=== PATIENT | female | born 1985 | race Hispanic/Latino ===

== ENCOUNTER → 2019-07-01 | Outpatient (CLI) | payer OTHER ==
--- NOTE | 2019-07-01 14:08 | Diagnostic Imaging Report ---
Exam: Pelvic ultrasound. History: Dysfunctional uterine bleeding, menorrhagia, anemia Comparison: None Findings: Transabdominal and endovaginal sonographic evaluation of the pelvis. The uterus is anteverted in position, measuring 8.8 x 5.4 x 8.9cm. No uterine mass. Endometrial stripe thickness is 17 millimeters. The right ovary measures 2.8 x 1.7 x 1.9 cm and appears unremarkable. The left ovary measures 3.0 x 3.0 x 3.1 cm and contains a 2.8 cm cystic lesion, likely physiologic in this premenopausal woman. No free fluid in the pelvis. Impression: 17 mm endometrial stripe is at the upper limits of normal for the secretory phase in this premenopausal patient. Signed by: Rubia Bustillos MD on 07/01/2019 2:04 PM
== END ==
LOC: US 12:47
PROVIDERS: ATTEND Family Medicine
DX: N93.8 Other specified abnormal uterine and vaginal bleeding (principal); N92.0 Excessive and frequent menstruation with regular cycle; D64.9 Anemia, unspecified
CPT/HCPCS: 76830; 76856